=== PATIENT | male | born 1980 | race Caucasian/White ===

== ENCOUNTER 2021-08-07 11:41 | Outpatient (CLI) | payer BC, SELFPAY ==
[2021-08-07 12:07] VITALS: BP 120/72; PULSE 64; RESP 16; TEMP 36.7; O2SAT 100; BMI 27.8
[2021-08-07] MEDS: 0.9% Saline Lock 10 ML Syringe IV (12:10)
[2021-08-07 12:41] VITALS: BP 116/76; PULSE 58; RESP 16; TEMP 36.7; O2SAT 95
[2021-08-07 13:36] VITALS: BP 105/66; PULSE 62; RESP 16; TEMP 36.5; O2SAT 100
== END 2021-08-07 13:41 | disposition home or self-care (01) ==
LOC: MS3OUT 11:41 → MS3 11:42
PROVIDERS: Referring Provider Nurse Practitioner Adult Health; Visit Provider Nurse Practitioner Adult Health
DX: Z23 Encounter for immunization (principal); U07.1 COVID-19
CPT/HCPCS: J7050; M0245; Q0245; A4216